=== PATIENT | female | born 1950 | race Caucasian/White ===

== ENCOUNTER 2020-08-27 11:28 | Emergency (ER) | payer OTHER, MEDICAID ==
[~2020-08-27] VITALS: Ht 147.3 cm; Wt 59.0 kg
[2020-08-27 11:38] VITALS: BP 115/61
[2020-08-27] MEDS ORDERED: CARI350T PO (13:27)
--- NOTE | 2020-08-27 13:52 | NUR ---
Patient discharged to home in stable condition. Written and verbal after care instructions given. Patient verbalizes understanding of instruction. Pt ambulatory with a steady gait
== END 2020-08-27 14:10 | disposition home or self-care (01) ==
LOC: ER 11:41
DX: M54.6 Pain in thoracic spine (principal); R07.89 Other chest pain; Z79.899 Other long term (current) drug therapy
CPT/HCPCS: 71045-TC; 72070-TC